=== PATIENT | female | born 1955 | race Caucasian/White ===

== ENCOUNTER 2016-07-18 20:38 | Inpatient (IN) | payer OTHER, MEDICARE ==
[~2016-07-18] VITALS: Ht 152.4 cm; Wt 76.7 kg
[2016-07-18 20:41] VITALS: BP 153/77
--- NOTE | 2016-07-18 20:49 | NUR ---
TO ER BED 3
--- NOTE | 2016-07-18 20:53 | NUR ---
60Y/O BIB FAMILY W/C/O SOB, COUGH, BODY ACHES, CHILLS AND CHEST/ BACK PAIN WHILE COUGHING X 2 WKS ON AND OFF. O2 SAT 80 RA, PT ON MONITOR, PLACE IN O2 3 LT. ER MD NOTIFIED.
[2016-07-18] MEDS ORDERED: predniSONE 20 MG TAB PO ONE (21:00)
[2016-07-18] MEDS ORDERED: ALBUTEROL SULFATE/IPRATROPIU 3 ML SOL IH ONE (21:00)
[2016-07-18] MEDS ORDERED: ALBUTEROL 0.083% 2.5 MG/3 ML NEBU INH ONE (21:00)
[2016-07-18] MEDS ORDERED: ATORVASTATIN CA80 MG PO (21:23)
[2016-07-18] MEDS ORDERED: CALCITRIOL0.25 MC1 PO (21:23)
[2016-07-18] MEDS ORDERED: GABAPENTIN100 MG PO (21:23)
[2016-07-18] MEDS ORDERED: FUROSEMIDE20 MG PO (21:23)
[2016-07-18] MEDS ORDERED: ASPIRIN81 M1 PO (21:24)
[2016-07-18] MEDS ORDERED: ZOLOFT50 MG PO (21:24)
[2016-07-18] MEDS ORDERED: CATAPRES0.1 MG PO (21:24)
[2016-07-18] MEDS ORDERED: NORVASC10 MG PO (21:24)
[2016-07-18] MEDS ORDERED: MORPHINE SULFATE 4 MG/ML SYR IVP ONE (22:30)
--- NOTE | 2016-07-18 22:50 | NUR ---
PT STABLE, ON DIAGNOSTIC RADIOLOGIC TECHNOLOGIST, AWATING FOR TRASFER. NO S/S OF DISTRESS NOTED AT THIS TIME, IN O2 3 LT, FAMILY AT BEDSIDE.
--- NOTE | 2016-07-18 22:52 | NUR ---
Patient will be admitted to care of DR MARIKA NAVA. Admited to TELEMETRY. Will go to room 105 A. Belongings list completed. Report to RAN FUENTES.
--- NOTE | 2016-07-18 23:04 | NUR ---
PT TRASPORTED VIA GURNEY MONITOR IN BED. NO S/S OF DISTRESS NOTED DURING TRASPORT. ACCOMPANIED BY RN, AND EMT.
[2016-07-18 23:05] VITALS: BP 137/80
--- NOTE | 2016-07-18 23:05 | NUR ---
Admitted from ER TO TELEMETRY UNIT, with chief complaint of SOB, COUGH, BACK AND CHEST PAIN WHEN COUGHING , 60 y/o ,Female, Cooperative, AWAKE, A/0X4, ZAMBIAN SPEAKING. RIGHT EYE BLIND, USES CAN WHEN AMBULATING. RESPIRATION EVEN AND UNLABORED, 02 SAT - 95% ON 02 AT 2 LITERS N/C, LUNG SOUNDS CLEAR ON BILATERAL LUNG AUSCULTATION. WITH UNPRODUCTIVE COUGHING NOTED. VERBALIZED CHEST PAIN DURING COUGHING, LIKE HEAVY PRESSURE ON CHEST, PAIN 8/10. DENIES CHEST PAIN AT THIS TIME 0/10. WAS MEDICATED WITH MORPHINE IN ER REPORTED. HEAD TO TOE ASSESSMENT DONE WITH CHARGE NURSE NATE, DRY SKIN NOTED ON BOTH FEET AND BLE. SKIN INTACT. PLAN OF CARE FOR THE SHIFT DISCUSSED. INSTRUCTED TO CALL NURSE WHENEVER GETTING OUT OF BED,VERBALIZED UNDERSTANDING. oriented to call light, bed, phone,television, bathroom, smoking policy,visiting hours, procedures, ID bracelet on. Belongings list checked.
[2016-07-19] VITALS: BP 135/78
--- NOTE | 2016-07-19 | NUR ---
Patient's Plan of Care was discussed and reviewed with WEB COMMUNICATIONS SPECIALIST: SORIN
[2016-07-19] MEDS ORDERED: PNEUMOCOCCAL VACCINE 23 MCG/0.5 ML VIAL IMVAC SCH ×2 (00:25→05:35)
--- NOTE | 2016-07-19 02:00 | NUR ---
ASSISTED OUT OF BE TO GO TO BR TO VOID, BACK TO BED AFTER VOIDING, SAFETY MAINTAINED.
[2016-07-19 04:00] VITALS: BP 134/75
[2016-07-19] MEDS ORDERED: MORPHINE SULFATE 2 MG/ML SYR IVP PRN (04:35)
[2016-07-19] MEDS ORDERED: NACL 0.9% 1,000 ML IV SCH (04:35)
[2016-07-19] MEDS ORDERED: ACETAMINOPHEN 325 MG TAB PO PRN (04:35)
[2016-07-19] MEDS ORDERED: ONDANSETRON 4 MG/2 ML VIAL IVP PRN (04:35)
[2016-07-19] MEDS ORDERED: HYDROcodone/APAP 5/325 MG 1 TAB TAB PO PRN (04:35)
[2016-07-19] MEDS: NACL 0.9% 1,000 ML IV SCH ×2 (06:10→20:49)
--- NOTE | 2016-07-19 06:30 | NUR ---
BILATERAL LEG SEQUENTIALS APPLIED.
--- NOTE | 2016-07-19 07:30 | NUR ---
NO COMPLAINT OF CHEST PAIN DURING SHIFT. CONDITION REMAIN STABLE. ENDORSED TO LAURE OLIVER RN FOR CONTINUITY OF CARE.
--- NOTE | 2016-07-19 07:30 | NUR ---
RECEIVED PT LYING IN BED AAOX4, PLEASANT AND COOPERATIVE AND VOICED NO C/O PAIN/ DISTRESS AT THIS TIME. SHIFT ASSESSMENT DONE AND CHARTED. PLAN OF CARE, MEDS , TREATMENTS AND SAFETY DISCUSSED WITH PT AND PT VERBALIZED UNDERSTANDING. WILL CONTINUE TO MONITOR PT.
--- NOTE | 2016-07-19 07:30 | NUR ---
PATIENT HAS BEEN SCREENED AND CATEGORIZED MODERATE NUTRITION RISK. PATIENT WILL BE SEEN WITHIN 3-5 DAYS OF ADMISSION. 07/21/16-07/23/[address]
[2016-07-19] MEDS ORDERED: ALBUTEROL SULFATE/IPRATROPIU 3 ML SOL IH PRN (07:45)
[2016-07-19 08:00] VITALS: BP 153/84
[2016-07-19] MEDS ORDERED: SODIUM POLYSTYRENE 15 GM/60 ML UDBTL PO SCH ×2 (08:00→13:00)
[2016-07-19] MEDS: CARVEDILOL 3.125 MG TAB PO SCH ×3 (08:00→18:21)
--- NOTE | 2016-07-19 08:49 | NUR ---
KAYAXELATE 30 GM PO GIVEN PER MD'S ORDER FOR K+ 6.8.
[2016-07-19] MEDS: cloNIDine 0.1 MG TAB PO SCH ×2 (09:00→14:07)
[2016-07-19] MEDS: ASPIRIN 81 MG TAB.CHEW PO SCH ×2 (09:00→14:05)
[2016-07-19] MEDS ORDERED: LISINOPRIL 5 MG TAB PO SCH (09:00)
[2016-07-19] MEDS: SERTRALINE 50 MG TAB PO SCH ×2 (09:00→14:05)
[2016-07-19] MEDS: GABAPENTIN 100 MG CAP PO SCH ×3 (09:00→20:39)
[2016-07-19] MEDS ORDERED: amLODIPine 5 MG TAB PO SCH (09:00)
[2016-07-19] MEDS ORDERED: FUROSEMIDE 20 MG TAB PO SCH (09:00)
[2016-07-19] MEDS: ATORVASTATIN 80 MG TAB PO SCH ×2 (09:00→14:05)
[2016-07-19] MEDS: CALCITRIOL 0.25 MCG CAPLF PO SCH ×2 (09:00→14:09)
--- NOTE | 2016-07-19 09:15 | NUR ---
PT STATED THAT SHE ALREADY TOOK HER MEDS. INSTRUCTED PT NOT TO TAKE HER OWN MEDS FROM HOME. DR. BARAJAS NOTIFIED RE K+ 6.8 AND THAT PT TOOK HER OWN MEDS. NO OTHER MEDS NOTED FROM PT'S BELONGINGS.
[2016-07-19] MEDS ORDERED: INSULIN HUMAN REGULAR 100 UNITS/ML 10 ML VIAL IVP ONE (09:25)
[2016-07-19] MEDS ORDERED: INSULIN LISPRO 100 UNITS/ML VIAL SUBQ SCH (09:35)
[2016-07-19] MEDS ORDERED: INSULIN HUMAN REGULAR 100 UNITS/ML 10 ML VIAL IVP SCH (09:39)
[2016-07-19] MEDS ORDERED: DEXTROSE 50% 50 ML SYR IVP SCH (09:41)
[2016-07-19] MEDS ORDERED: CALCIUM GLUCONATE 10% 1000 MG/10 ML VIAL IVP ONE (09:50)
--- NOTE | 2016-07-19 10:15 | NUR ---
D50 IVP, 10 UNIT REGULAR INSULIN IVP ,AND CEPHULAC PO GIVEN PER MD'S ORDER
[2016-07-19] MEDS: LACTULOSE 20 GM/30 ML UDC PO SCH ×2 (10:18→20:39)
[2016-07-19] MEDS ORDERED: CALCIUM GLUCONATE 10% 1,000 MG in NACL 0.9% 50 ML IV SCH (11:00)
[2016-07-19] MEDS ORDERED: HEPARIN PER PHARMACY MC PRN (11:20)
--- NOTE | 2016-07-19 11:50 | NUR ---
DR. SCHAEFER NOTIFIED RE RESULT OF CREATININE, BUN AND PO . SAME STILL ELEVATED BUT STARTING TO GO DOWN.
[2016-07-19 12:00] VITALS: BP 154/87
--- NOTE | 2016-07-19 12:00 | NUR ---
PT'S FAMILY WAS IN AND STATED THAT PT'S DID NOT TAKE HER MED IN AM. PT PULLED OUT IV ACCIDENTALLY WHEN SHE STEPPED ON IT WHEN SHE WENT TO THE [facility]. WILL TRY TO START A NEW IV. PT STARTING TO C/O SOB AND WAS IN DISTRESS. DR. BARAJAS GAVE ORDER FOR BPAP AND PT STARTED ON SAME.
[2016-07-19] MEDS ORDERED: DEXTROSE 50% 50 ML SYR IVP PRN (12:25)
--- NOTE | 2016-07-19 12:47 | NUR ---
PLACED PT ON VISION BIPAP PER DR BARAJAS FOR SUDDEN DESAT ST 12\5 RR 14 FIO2 50 APNEA SET 20 SECONDS ALARMS ARE ON AND FUNCTIONAL PT IN HF WEARING F\F MASK SIZE LG GEL PLACED UNDER MASK CONT. POX IN PLACE HHN GIVEN I\ WITH 3 MG DUONEB FAMILY BEDSIDE BIPAP PLUGGED INTO RED OUTLET
--- NOTE | 2016-07-19 12:49 | NUR ---
SPOKE WITH QUYNH FROM [facility] AND GAVE HIM THE PHONE NUMBER TO THE RESIDENT. [phone] PHONE QUYNH [phone]
[2016-07-19] MEDS: ALBUTEROL SULFATE/IPRATROPIU 3 ML SOL IH SCH ×2 (12:50→19:18)
[2016-07-19] MEDS: hePARIN / DEXT 5% PREMIX 250 ML IV SCH (13:47)
--- NOTE | 2016-07-19 13:47 | NUR ---
HERIN DRIP STARTED AFTER NEW IV INSERTED X2 G20 IN PT'S LAC AND LFA AND PT TOLERATED IT WELL. PT STILL ON BIPAP AT THIS TIME AND RESTING IN BED COMFORTABLY. PT REFUSED CAMARENA CATHETER AT THIS TIME AND DR. CERON MADE AWARE OF IT BUT WILL ATTEMPT AGAIN LATER TO ENCOURAGE PT TO HAVE IT INSERTED.
[2016-07-19] MEDS: SODIUM POLYSTYRENE 15 GM/60 ML UDBTL PO SCH ×3 (14:00→23:41)
--- NOTE | 2016-07-19 14:35 | NUR ---
placed pt on 5l oxymizer as per dr. arenas and bipap prn for distress
--- NOTE | 2016-07-19 14:40 | NUR ---
PT PT ON OXIMIZER BY RT AT 5L AND PT TOOK LUNCH AND FLUIDS WELL AND HER AM MEDS. PT LEFT FOR NUCLEAR MED AFTER FOR VQ SCAN PER W/C WITH HEPATIN DRIP AND O2.
--- NOTE | 2016-07-19 15:50 | NUR ---
PT RETURNED PER W/C AND NOTED IV IN PT'S LAC BLEEDING. PT STATED IT WAS MOVED BY STAFF IN NUCLEAR MED. SAME REMOVED AND NOTED TO BE BLEEDING PROFUSELY. HAD TO PUT PRESSURE IN AREA FOR A LONG TIME. AND PT'S LINEN AND GOWN CHANGED BECAUSE OF THE BLEEDING. PRESSURE DRESSING APPLIED TO AREA. WILL CONTINUE TO CHECK ON PT.
[2016-07-19 16:00] VITALS: BP 161/72
--- NOTE | 2016-07-19 16:00 | NUR ---
NEW G 20 IV INSERTED TO PT'S RFA. PT TOLERATED IT WELL.
--- NOTE | 2016-07-19 16:50 | NUR ---
CAMARENA CATHETER FR 16 INSERTED ASEPTICALLY AND PT TOLERATED IT WELL. CAMARENA DRAINING YELLOW URINE.
[2016-07-19] MEDS: BLOOD GLUCOSE MONITORING 1 DEV DEV FS SCH ×2 (17:00→20:38)
--- NOTE | 2016-07-19 17:30 | NUR ---
PT'S BP REMAINS ELEVATED. KARL QURESHI MADE AWARE OF SAME NO NEW ORDERS MADE BY .
[2016-07-19] MEDS: INSULIN LISPRO SLIDING SCALE 100 UNITS/ML VIAL SUBQ PRN ×2 (18:19→20:46)
--- NOTE | 2016-07-19 18:30 | NUR ---
PT TOOK DIET AND FLUIDS WELL NO CHANGES NOTED IN PT'S CONDITION.
--- NOTE | 2016-07-19 19:20 | NUR ---
REPROT GIVEN TO MAXIMINO TONG AT BEDSIDE. HEPARIN DRIP AT 1360 UNITS/HR AND NO CHANGES NOTED IN PT'S CONDITION. PT RESTING IN BED COMFORTABLY.
--- NOTE | 2016-07-19 19:28 | NUR ---
RECEIVED REPORT FROM RAN KELSEY, AT BEDSIDE. INITIAL ASSESSMENT AND BODY CHECK DONE. PATIENT AAO X 4, ABLE TO FOLLOW COMMAND AND MAKE NEEDS KNOWN AND AMBULATORY WITH URGENT CARE PHYSICIAN ASSISTANT. PATIENT CURRENTLY LYING DOWN ON THE BED AND RECEIVING THE BREATHING TX. NO S/S OF DISTRESS OR SOB NOTED. SKIN WARM/DRY TO TOUCH WITH NORMAL COLOR AND INTACT. CAMARENA CATHETER PATENT/IN PLACE AND DRAINING TO GRAVITY. DISCUSSED PLAN OF CARE, PAIN MANAGEMENT AND MEDICATION REGIMEN WITH PATIENT AND PATIENT VERBALIZED UNDERSTANDING. PLACED PATIENT ON SAFETY/FALL PRECAUTIONS AND WILL CONTINUE TO MONITOR. CALL LIGHT LEFT WITHIN REACH.
[2016-07-19 19:48] VITALS: BP 157/81
[2016-07-19] MEDS: SODIUM BICARBONATE 650 MG TAB PO SCH (20:39)
--- NOTE | 2016-07-19 21:00 | NUR ---
ADMINISTERED DUE MEDICATIONS MD'S ORDERED WITH EDUCATION GIVEN. PATIENT COMPLYING WITH MEDICATIONS AND TOLERATED WELL. KEPT PATIENT IN COMFORTABLE POSITION/WARM AND WILL CONTINUE TO MONITOR.
--- NOTE | 2016-07-19 21:10 | NUR ---
RECEIVED PTT RESULT AND IT WAS 100.3. WILL HOLD HEPARIN FOR 1 HR AND REDUCE THE RATE PER PROTOCOL.
--- NOTE | 2016-07-19 21:36 | NUR ---
ASSISTED PATIENT TO USE THE BEDSIDE COMMODE AND BACK TO BED SAFELY. PATIENT TOLERATED ACTIVITY WELL.
[2016-07-20] VITALS: BP 160/82
--- NOTE | 2016-07-20 00:26 | NUR ---
ASSISTED PATIENT TO USE THE BEDSIDE COMMODE FOR ANOTHER BOWEL MOVEMENT (#4TH). AM CARE/ASAD-CARE GIVEN WITH LINENS/GOWN CHANGED AND PATIENT TOLERATED WELL. V/S REMAINED WNL AND NO APPARENT DISTRESS NOTED. WILL CONTINUE TO MONITOR.
[2016-07-20] MEDS: ALBUTEROL SULFATE/IPRATROPIU 3 ML SOL IH SCH ×4 (01:29→18:55)
--- NOTE | 2016-07-20 03:30 | NUR ---
PATIENT IS CLINICALLY STABLE AND NO APPARENT DISTRESS NOTED. WILL CONTINUE TO MONITOR.
[2016-07-20 04:00] VITALS: BP 156/71
[2016-07-20] MEDS: hePARIN / DEXT 5% PREMIX 250 ML IV SCH (04:04)
--- NOTE | 2016-07-20 05:10 | NUR ---
RECEIVED CRITICAL LAB VALUES: HGB 6.9, BUN 66 AND CR 5.7. PAGED DOCTOR JULIANN AND AWAITING FOR CALL BACK.
--- NOTE | 2016-07-20 05:30 | NUR ---
NOTIFIED DR. HUMPHREYS OVER THE PHONE REGARDING CRITICAL LAB VALUES. NEW ORDERS GIVEN: HOLD HEPARIN DRIP AND STOP KAYEXALATE, NOTED AND CARRIED-OUT.
[2016-07-20] MEDS: BLOOD GLUCOSE MONITORING 1 DEV DEV FS SCH ×4 (05:44→20:44)
[2016-07-20] MEDS: INSULIN LISPRO SLIDING SCALE 100 UNITS/ML VIAL SUBQ PRN ×3 (05:45→16:17)
[2016-07-20] MEDS: NACL 0.9% 1,000 ML IV SCH (05:48)
[2016-07-20] MEDS ORDERED: MAG SULF 2000 MG/WATER PREMIX 50 ML IV SCH (06:40)
[2016-07-20] MEDS: NACL 0.45% 1,000 ML IV SCH ×3 (07:03→18:46)
--- NOTE | 2016-07-20 07:09 | NUR ---
CHANGED IVF INTO 0.45 %NS AT 120 ML/HR AND ADMINISTERED MG-RIDER.
--- NOTE | 2016-07-20 07:22 | NUR ---
ENDORSED PLAN OF CARE TO RAN ROMO, AT BEDSIDE. PATIENT RESTED WELL THROUGHOUT THE SHIFT AND REMAINED IN STABLE CONDITION WITHOUT S/S OF DISTRESS NOTED.
--- NOTE | 2016-07-20 07:23 | NUR ---
PT ALERT AND ORIENTED X4, IRISH SPEAKING. BREATHING EVENLY AND UNLABORED. WITH O2 AT 4L/MIN VIA OXYMIZER. NO SIGNS OF ACUTE DISTRESS. SKIN IS WARM AND DRY. NO SIGNS OF ANY BOWEL/BLADDER DISCOMFORT. CAMARENA CATHETER NOTED INTACT AND PATENT WITH 400ML OF CLEAR YELLOW URINE. NO C/O OF PAIN. ALL NEEDS ATTENDED, SAFETY PRECAUTIONS MAINTAINED. CALL LIGHT WITHIN REACH.
[2016-07-20 08:00] VITALS: BP 145/70
[2016-07-20] MEDS: ATORVASTATIN 80 MG TAB PO SCH (08:22)
[2016-07-20] MEDS: SERTRALINE 50 MG TAB PO SCH (08:23)
[2016-07-20] MEDS: cloNIDine 0.1 MG TAB PO SCH (08:23)
[2016-07-20] MEDS: ASPIRIN 81 MG TAB.CHEW PO SCH (08:23)
[2016-07-20] MEDS: CARVEDILOL 3.125 MG TAB PO SCH ×2 (08:23→16:09)
[2016-07-20] MEDS: CALCITRIOL 0.25 MCG CAPLF PO SCH (08:23)
[2016-07-20] MEDS: GABAPENTIN 100 MG CAP PO SCH ×2 (08:23→20:42)
[2016-07-20] MEDS: SODIUM BICARBONATE 650 MG TAB PO SCH ×2 (08:23→20:42)
--- NOTE | 2016-07-20 11:12 | NUR ---
WAS SEEN BY DR. CERON, NEW LAB ORDERS RECEIVED. NOTED AND CARRIED OUT.
[2016-07-20] MEDS: CALCIUM ACETATE 667 MG TAB PO SCH ×2 (11:24→16:09)
[2016-07-20 12:00] VITALS: BP 144/71
--- NOTE | 2016-07-20 12:37 | NUR ---
FAXED CONCURRENT REVIEW TO [facility] [phone] PHONE QUYNH [phone]
[2016-07-20 15:52] VITALS: BP 157/74
--- NOTE | 2016-07-20 16:23 | NUR ---
ALE MACHADO AWARE OF H/H 6.2/19.3. CONTINUE TO MONITOR.
--- NOTE | 2016-07-20 16:46 | NUR ---
SPOKE WITH QUYNH FROM [facility]. HE SAID HIS PHYSICIAN, DR. MAGANA, SPOKE WITH OUR PHYSICIAN, DR. BARAJAS AND THAT THIS PATIENT IS STABLE TO BE TRANSFERED TO CONTRACTED FACILITY. I GAVE QUYNH THE PHONE NUMBER TO THE FLOOR TO CALL IF THEY GET A BED. LILA TONGSALESPERSON RECREATIONAL VEHICLES NURSE AWARE. QUYNH FROM [facility], .
--- NOTE | 2016-07-20 18:40 | NUR ---
PT REFUSED TX , COMPLAINED FEELING NAUSEA
--- NOTE | 2016-07-20 18:55 | NUR ---
RECEIVED D/C ORDER FOR SNF. NOTED PER CM'S NOTES, CHARGE NURSE TO BE NOTIFIED IS THERE IS A BED AVAILABLE.
--- NOTE | 2016-07-20 19:01 | NUR ---
PT ALERT AND RESPONSIVE, NO SIGNS OF ACUTE DISTRESS. ENDORSED TO ONCOMING PRINCIPAL SYSTEM SOFTWARE ENGINEER NURSE FOR CONTINUITY OF CARE.
--- NOTE | 2016-07-20 19:10 | NUR ---
RECEIVED PT ON BED PRESENTLY GETTING ULTRASOUND OF ABDOMEN, NO SIGNS OF DISTRESS, WILL CHECKS BACK LATER.
[2016-07-20] MEDS ORDERED: HUMALOG SL100 UNITS/ SUBQ (19:33)
[2016-07-20] MEDS ORDERED: BLOOD GLUCOSE1 EACH FS (19:33)
[2016-07-20] MEDS ORDERED: IPRATROPIUM BROM3 M1 IH ×2 (19:33→19:34)
[2016-07-20] MEDS ORDERED: FERROUS SU300 MG/5 M GT (19:33)
[2016-07-20] MEDS ORDERED: CARVEDILOL3.125 MG PO (19:33)
[2016-07-20] MEDS ORDERED: PHOSLO667 M1 PO (19:33)
[2016-07-20] MEDS ORDERED: NOVAPLUS ONDA2 MG/M1 IVP (19:34)
[2016-07-20] MEDS ORDERED: SODIUM BICARBO650 M1 PO (19:34)
[2016-07-20 20:00] VITALS: BP 145/78
[2016-07-20] MEDS ORDERED: cefTRIAXone 1,000 MG VIAL ONE (20:32)
[2016-07-20] MEDS: FERROUS SULFATE 300 MG/5 ML UDC GT SCH (20:42)
--- NOTE | 2016-07-20 21:00 | NUR ---
BLOOD SUGAR CHECKED WITH 147 RESULT, MEDICATED PRN FOR NAUSEA WITH ZOFRAN IVP, WAITED FOR 15 MINUTES AND ABLE TO TOLERATE PO MEDICATIONS, SNACK PROVIDED, ALL NEEDS ATTENDED.
[2016-07-21] VITALS: BP 137/61
--- NOTE | 2016-07-21 | NUR ---
PT SLEEPING, EASILY AROUSABLE, VITAL SIGNS STABLE, DENIES ANY PAIN, NO SOB NOTED, CAMARENA CATHETER IN PLACE WITH CLEAR YELLOW OUTPUT, CONTINUE TO MONITOR CLOSELY.
[2016-07-21] MEDS: ALBUTEROL SULFATE/IPRATROPIU 3 ML SOL IH SCH ×4 (01:00→19:41)
--- NOTE | 2016-07-21 01:50 | NUR ---
ROUNDED ON PT, SEEN WITH OXIMIZER OFF, SAT-88%, PUT BACK OXIMIZER AT 3L, SAT WENT UP TO 96%, RISK AND BENEFITS EXPLAINED TO PT ABOUT THE IMPORTANCE OF OXYGEN, VERBALIZED UNDERSTANDING.
[2016-07-21 04:00] VITALS: BP 143/70
--- NOTE | 2016-07-21 04:00 | NUR ---
PT SLEEPING, EASILY AROUSABLE, VITAL SIGNS STABLE, NO DISTRESS NOTED, MONITORED CLOSELY.
[2016-07-21] MEDS: INSULIN LISPRO SLIDING SCALE 100 UNITS/ML VIAL SUBQ PRN ×3 (06:12→17:54)
--- NOTE | 2016-07-21 06:15 | NUR ---
BLOOD SUGAR CHECKED WITH 187 RESULT, COVERAGE GIVEN, ON CONTINUOUS PULSE OX WITH 96-98%, NO RESP DISTRESS NOTED, WITH OXIZIMER AT 3L, MONITORED CLOSELY.
[2016-07-21] MEDS: BLOOD GLUCOSE MONITORING 1 DEV DEV FS SCH ×3 (06:39→16:48)
--- NOTE | 2016-07-21 06:55 | NUR ---
HHN TX GIVEN. NO SOB OR DISTRESS NOTED. BIPAP AT BEDSIDE. PT DOES NOT NEED BIPAP OF NOW. SAT 98% ON 2 L OXIMIZER HR 87 BS CLEAR. WILL CONTINUE TO MONITOR.
--- NOTE | 2016-07-21 07:05 | NUR ---
PT CURRENTLY RECEIVING BREATHING TX, NO DISTRESS NOTED, REPORT GIVEN TO RAN AMARO FOR CONTINUITY OF CARE.
--- NOTE | 2016-07-21 07:06 | NUR ---
RECEIVED REPORT FROM RAN JANG. PT IS CURRENTLY RECEIVING BREATHING AT THIS TIME, AAO X4, SKIN INTACT, IV ON LEFT FA FLUSHED PATENT AND INTACT, AND RIGHT FA PATENT AND INTACT INFUSING FLUID WELL, CAMARENA CATH IN PLACE DRAINING CLEAR YELLOW URINE,INITIAL ASSESSMENT DONE, NO S/S OF RESPIRATORY DISTRESS OR DISCOMFORT NOTED, DISCUSSED PLAN OF CARE, PT VERBALIZED UNDERSTANDING, SAFETY/FALL PRECAUTION ENFORCED, CALL LIGHT WITHIN REACH, WILL CONTINUE TO MONITOR.
[2016-07-21 07:42] VITALS: BP 144/74
[2016-07-21] MEDS: GABAPENTIN 100 MG CAP PO SCH ×2 (08:46→20:08)
[2016-07-21] MEDS: ATORVASTATIN 80 MG TAB PO SCH (08:46)
[2016-07-21] MEDS: SERTRALINE 50 MG TAB PO SCH (08:46)
[2016-07-21] MEDS: CARVEDILOL 3.125 MG TAB PO SCH ×2 (08:46→17:06)
[2016-07-21] MEDS: FERROUS SULFATE 300 MG/5 ML UDC GT SCH ×2 (08:47→20:08)
[2016-07-21] MEDS: cloNIDine 0.1 MG TAB PO SCH (08:47)
[2016-07-21] MEDS: ASPIRIN 81 MG TAB.CHEW PO SCH (08:47)
[2016-07-21] MEDS: CALCIUM ACETATE 667 MG TAB PO SCH ×3 (08:47→17:06)
[2016-07-21] MEDS: SODIUM BICARBONATE 650 MG TAB PO SCH ×2 (08:47→20:08)
--- NOTE | 2016-07-21 08:50 | NUR ---
DUE MEDS GIVEN, PT TOLERATED WELL, CALL LIGHT WITHIN REACH, WILL CONTINUE TO MONITOR.
[2016-07-21] MEDS ORDERED: LACTOBACILLUS RHAMNOSUS GG 1 EACH CAP PO SCH (09:00)
[2016-07-21] MEDS ORDERED: CALCITRIOL 0.25 MCG CAPLF PO SCH (09:00)
--- NOTE | 2016-07-21 11:20 | NUR ---
PT IS SLEEPING AT THIS TIME, NO S/S OF RESPIRATORY DISTRESS OR DISCOMFORT NOTED, CALL LIGHT WITHIN REACH, WILL CONTINUE TO MONITOR.
[2016-07-21 12:00] VITALS: BP 154/74
--- NOTE | 2016-07-21 13:20 | NUR ---
PT IS RESTING ON BED TALKING TO PT ON THE OTHER BED, ALL NEEDS MET AT THIS TIME, CALL LIGHT WITHIN REACH, WILL CONTINUE TO MONITOR.
--- NOTE | 2016-07-21 14:00 | NUR ---
CM NOTE CONCURRENT REVIEW FAXED TO [facility] / FAX# [phone], ATTN: QUYNH #[phone]
[2016-07-21] MEDS: NACL 0.45% 1,000 ML IV SCH (14:54)
--- NOTE | 2016-07-21 15:50 | NUR ---
PT IS SLEEPING AT THIS TIME, NO S/S OF RESPIRATORY DISTRESS OR DISCOMFORT NOTED, CALL LIGHT WITHIN REACH, WILL CONTINUE TO MONITOR.
[2016-07-21 16:00] VITALS: BP 146/72
[2016-07-21] MEDS ORDERED: FUROSEMIDE 20 MG TAB PO SCH (17:30)
[2016-07-21] MEDS ORDERED: ACETAMINOPHEN 325 MG TAB PO SCH (17:30)
--- NOTE | 2016-07-21 17:50 | NUR ---
STARTED WITH THE FIRST UNIT OF BLOOD TRANSFUSION.
--- NOTE | 2016-07-21 18:40 | NUR ---
RECEIVED A CALL FROM [facility] THAT PT IS GOING TO BE TRANSFERRED TO [facility] AT ROOM 209 BED 2. THE RECEIVING DOCTOR WILL BE DR. ADDISON. THE NUMBER TO GIVE REPORT TO IS [phone].
--- NOTE | 2016-07-21 19:07 | NUR ---
SPOKE TO DR. CERON AND NOTIFIED THAT PT IS BEING TRANSFERRED TO [facility] PER [facility]. ALSO NOTIFIED THAT ONLY 1 UNIT OF BLOOD WILL BE GIVEN. DR. CERON IS OKAY WITH IT.
--- NOTE | 2016-07-21 19:13 | NUR ---
ENDORSED PT TO RAN ROGERS FOR CONTINUITY OF CARE AND CONTINUATION OF DISCHARGE. PT IS STABLE AT THIS TIME.
--- NOTE | 2016-07-21 19:14 | NUR ---
RECEIVED REPORT FROM INEZ TONG FOR CONTINUITY OF CARE, PATIENT IS A&OX4, DISCUSSED PLAN OF CARE WITH PATIENT AND FAMILY MEMBERS AT BEDSIDE. SHIFT ASSESSMENT DONE, VS TAKEN, STABLE AT THIS TIME. NO S/S OF RESPIRATORY DISTRESS NOTED ON 2 L OXYMIZER. PATIENT DENIES PAIN AT THIS TIME. PT HAS RT FA IV INFUSING BLOOD TRANSFUSION WELL. LT FA IV FLUSHED AND PATENT. CAMARENA CATHETER IN PLACE DRAINING CLEAR YELLOW URINE TO GRAVITY. SKIN INTACT. SAFETY/ FALL PRECAUTIONS ENFORCED. WILL CONTINUE TO MONITOR.
--- NOTE | 2016-07-21 19:41 | NUR ---
FOUND PATIENT ON 2L OXYMIZER. PLACED PATIENT ON 2L NASAL CANNULA, TOLERATING WELL.
[2016-07-21 19:52] VITALS: BP 164/71
--- NOTE | 2016-07-21 20:11 | NUR ---
DUE MEDICATIONS ADMINISTERED, TOLERATED WELL. PNEUMONIA VACCINE GIVEN, NO REACTION NOTED. PATIENT IS NOW ON 2L NASAL CANNULA. NO S/S OF DISTRESS OR DISCOMFORT NOTED.
--- NOTE | 2016-07-21 20:50 | NUR ---
BLOOD TRANSFUSION COMPLETE, NO REACTION NOTED. VS TAKEN, B/P 156/72, HR 77, TEMP 97.6, O2 96 ON 2L NC, RR 20, PATIENT DENIES PAIN. NO S/S OF REACTION NOTED. WILL CONTINUE TO MONITOR.
--- NOTE | 2016-07-21 21:39 | NUR ---
DISCHARGE EDUCATION REINFORCED TO PATIENT, VERBALIZED UNDERSTANDING. [facility] ARRIVED TO GI PHYSICIAN PATIENT. IVS REMAIN INTACT, SALINE LOCKED. CAMARENA CATHETER REMAINS IN PLACE DRAINING YELLOW URINE. PATIENT CHANGED TO CLOTHES FROM HOME. AMBULATED TO [facility], O2 APPLIED, NO S/S OF DISTRESS NOTED. PATIENT LEFT UNIT IN STABLE CONDITION. CALLED [facility] FOR REPORT. PER CHARGE NURSE WILL CALL BACK.
--- NOTE | 2016-07-21 22:04 | NUR ---
RECEIVED CALL FROM RN AT [facility], REPORT GIVEN, ALL QUESTIONS CLARIFIED.
== END 2016-07-21 21:40 | disposition short-term general hospital (02) | DRG 205 ==
LOC: MED 20:38 → MTU 22:40
PROVIDERS: ADMIT Family Medicine; ATTEND Family Medicine
PROC: 30233N1 Transfusion of Nonautologous Red Blood Cells into Peripheral Vein, Percutaneous Approach (ICD-10-PCS; principal; 2016-07-21)
DX: M94.0 Chondrocostal junction syndrome [Tietze] (principal); N17.0 Acute kidney failure with tubular necrosis; I50.43 Acute on chronic combined systolic (congestive) and diastolic (congestive) heart failure; J96.01 Acute respiratory failure with hypoxia; I13.0 Hypertensive heart and chronic kidney disease with heart failure and stage 1 through stage 4 chronic kidney disease, or unspecified chronic kidney disease; E44.0 Moderate protein-calorie malnutrition; E87.2 Acidosis; N39.0 Urinary tract infection, site not specified; N18.4 Chronic kidney disease, stage 4 (severe); E87.5 Hyperkalemia; E11.65 Type 2 diabetes mellitus with hyperglycemia; E66.9 Obesity, unspecified; E83.39 Other disorders of phosphorus metabolism; D64.9 Anemia, unspecified; E11.22 Type 2 diabetes mellitus with diabetic chronic kidney disease; E11.42 Type 2 diabetes mellitus with diabetic polyneuropathy; F32.9 Major depressive disorder, single episode, unspecified; E83.42 Hypomagnesemia; E83.51 Hypocalcemia; Z90.49 Acquired absence of other specified parts of digestive tract; Z98.51 Tubal ligation status; Z79.82 Long term (current) use of aspirin; Z79.899 Other long term (current) drug therapy; Z82.49 Family history of ischemic heart disease and other diseases of the circulatory system; Z56.0 Unemployment, unspecified; Z68.33 Body mass index [BMI] 33.0-33.9, adult; F41.9 Anxiety disorder, unspecified

== ENCOUNTER 2016-10-04 21:07 | Emergency (ER) | payer OTHER, MEDICARE ==
[~2016-10-04] VITALS: Ht 152.4 cm; Wt 76.7 kg
[~2016-10-04 21:07] MED LIST: AMLO10TA PO; ASPI81CT89 PO; ATOR80TA27 PO; BLOO1STR10 FS; CALC0.254 PO; CARV3.122 PO; CLON0.1T42 PO; FER300L GT; FURO20TA8 PO; GABA-636 PO; HUMSLIDE SUBQ; IPRA3AMP IH; ONDA2SOL45 IVP; PHO667 PO; SERT50TA PO; SODI650T2 PO
[2016-10-04 21:28] VITALS: BP 115/66
--- NOTE | 2016-10-05 01:30 | NUR ---
PATIENT LEFT WITHOUT BEING SEEN BY DR. DUVALL. NO FURTHER CARE PROVIDED FOR PATIENT.
== END 2016-10-05 01:30 | disposition left against medical advice (07) ==
LOC: MED 21:07
DX: R51 Headache (principal); R19.7 Diarrhea, unspecified; Z53.21 Procedure and treatment not carried out due to patient leaving prior to being seen by health care provider